=== PATIENT | male | born 1980 | race Caucasian/White ===

== ENCOUNTER 2020-03-27 13:06 | Emergency (ER) | payer OTHER, SELFPAY ==
[2020-03-27 13:18] VITALS: BP 151/101; PULSE 79; RESP 17; TEMP 36.7; O2SAT 99; BMI 26.5
--- NOTE | 2020-03-27 14:03 | US_ITS ---
EXAMINATION: US VENOUS ULTRASOUND WITH DOPPLER LOWER EXTREMITY, LEFT CLINICAL INFORMATION: Left lower extreme swelling and pain, erythema. COMPARISON: None TECHNIQUE: Ultrasound of the deep veins is performed from the hip to the calf with compression sonography and color and pulse Doppler assessment. Spectral analysis with color-flow imaging is performed. FINDINGS: There is normal venous compression and respiratory variation and augmented flow. The visualized common femoral vein, superficial femoral vein, profunda femoral vein, popliteal vein, and the trifurcation region shows no evidence of deep venous thrombosis. There is no significant popliteal fossa cyst. US/US venous duplex LE LT IMPRESSION: No DVT demonstrated in the left lower extremity.
[2020-03-27] MEDS: cephALEXin 500 MG CAPSULE PO (14:11)
--- NOTE | 2020-03-27 14:20 | ED_ITS ---
HPI - Extremity Injury (Lower) General Chief Complaint: Extremity Injury, Lower Stated Complaint: l leg pain Time Seen by Provider: 03/27/20 14:03 Source: patient Mode of arrival: ambulatory History of Present Illness HPI Narrative: 39-year-old male with no significant past medical history of complaining of left lower leg pain, swelling, and erythema x1 week. Reports symptoms worsening, worse with movement/ambulation. Denies known trauma/falls or injury. Denies fever, chills, calf pain, recent travel, history of clots, SOB Related Data Previous Rx's Medication Instructions Recorded cephalexin [Keflex] 500 mg PO Q6H 7 Days #28 cap 03/27/20 Allergies Allergy/AdvReac Type Severity Reaction Status Date / Time naproxen [NAPROXEN] Allergy Unknown SICK Verified 03/27/20 13:23 naproxen Allergy Unknown Stomach Uncoded 03/27/20 13:23 Upset Review of Systems Review of Systems: Constitutional: No Weight loss, No Fever, No Chills Cardiovascular: No Chest Pain, No SOB Respiratory: No Cough, No Sputum, No Wheezing Musculoskeletal: +LLE pain, +L lower leg swelling Skin: No Skin Lesions, +rash Neuro: No Weakness, No Numbness, No Paresthesias Yes all other systems are reviewed and are negative FOR[facility], [facility] Past Medical History Attestation statement: The following information was validated with the patient. Medical History (Updated 03/27/20 @ 16:22 by TRINIDAD Mckeon) No known health problems Social History Social History Smoking Status: Former smoker Use of substances other than those prescribed or required for medical reasons: No Advance Directives: No Advance Directives Information Provided: No Physical Exam Vital Signs: Vital Signs: Vital Signs Temp Pulse Resp BP Pulse Ox 03/27/20 15:39 99.2 F 61 16 143/87 H 97 03/27/20 13:18 98.1 F 79 17 151/101 H 99 Body Mass Index 26.5 Const: General: cooperative and healthy appearing Orientation/consciousness: patient oriented x3 Limitations: no limitations HENMT: Head: Yes normal to inspection Ears: hearing grossly normal bilaterally General nose exam: Normal external nose present Face and sinus: Yes normal facial exam Eyes: General: appearance normal, both eyes and all related structures EOM: EOMs intact bilaterally Neck: Neck: Yes normal visual inspection Resp: Effort & Inspection: normal respiratory effort Cardio: Peripheral pulses: Peripheral pulses 2+ throughout Skin: Other: small superficial abrasion noted to L bullard with distaal +mild swelling and erythema > lateral aspect with ttp. no fluctuance or induration. no streaking. No calf ttp. NV intact. Neuro: General: patient oriented x3 Gait exam (Neuro): Normal gait present Extrem: General: Yes normal to inspection Course Course Course Narrative: -without evidence of DVT Imaging results discussed with patient including antibiotic prescription. Worrisome signs and symptoms and strict return precautions discussed. Patient verbalized understanding feel safe for discharge MDM - Extremity Injury (Lower) MDM Narrative Medical decision making narrative: On exam hypertensive, NAD, nontoxic appearing. Concern for early cellulitis vs possible DVT. Low concern for fracture or abscess/deeper infection Discharge Plan Discharge Clinical Impression: Cellulitis Qualifiers: Site of cellulitis: extremity Site of cellulitis of extremity: lower extremity Laterality: left Qualified Code(s): L03.116 - Cellulitis of left lower limb Patient Disposition: Home, Self-Care Instructions: Cellulitis (ED) Prescriptions: New cephalexin [Keflex] 500 mg capsule 500 mg PO Q6H 7 Days Qty: 28 RF: 0 Referrals: Physician,None [Primary Care Provider] - 2 days (Your primary care doctor)
[2020-03-27 15:39] VITALS: BP 143/87; PULSE 61; RESP 16; TEMP 37.3; O2SAT 97
== END 2020-03-27 16:30 | disposition home or self-care (01) ==
PROVIDERS: Emergency Provider Emergency Medicine
DX: L03.116 Cellulitis of left lower limb (principal); R60.0 Localized edema; Z87.891 Personal history of nicotine dependence
CPT/HCPCS: 93971; 99284

== ENCOUNTER 2020-11-23 06:44 | Emergency (ER) | payer MEDICAID, SELFPAY ==
--- NOTE | ~2020-11-23 | CT_ITS ---
EXAMINATION: CT CERVICAL SPINE WITHOUT CONTRAST CLINICAL INFORMATION: Seizure. Fall. COMPARISON: None TECHNIQUE: Axial images through the cervical spine without contrast. Sagittal and coronal reconstructions on the technologist workstation were performed. This CT examination was performed using dose optimization techniques as appropriate, variously including the following: *Automated exposure control *Adjustment of mA and/or kV according to patient size (this includes techniques or standardized protocols for targeted exams where dose is matched to indication/reason for exam; i.e. extremities or head) *Use of iterative reconstruction technique DLP: 549 mGy-cm FINDINGS: Bone alignment is normal. No fracture or dislocation is seen. Disc spaces are normal. Prevertebral soft tissues are normal. There is shotty cervical lymphadenopathy. The visualized lung apices are clear. CT/CT cervical spine wo con IMPRESSION: Unremarkable examination.
--- NOTE | ~2020-11-23 | CT_ITS ---
EXAMINATION: CT HEAD WITHOUT CONTRAST CLINICAL INFORMATION: Fall. Seizure. COMPARISON: None TECHNIQUE: Contiguous axial imaging was performed from the skull base to vertex without intravenous administration of contrast. This CT examination was performed using dose optimization techniques as appropriate, variously including the following: *Automated exposure control *Adjustment of mA and/or kV according to patient size (this includes techniques or standardized protocols for targeted exams where dose is matched to indication/reason for exam; i.e. extremities or head) *Use of iterative reconstruction technique DLP: 701 mGy-cm FINDINGS: There is no evidence of acute intracranial hemorrhage or territorial infarction. No abnormal mass effect or midline shift is seen. Abbott to white matter differentiation is well preserved. No extra-axial fluid collections are identified. The ventricles are normal in size. There is no abnormal attenuation within the brain parenchyma. The osseous structures and soft tissues are normal. There is inflammatory change seen in the sphenoid sinus. The mastoid air cells and visualized portions of the paranasal sinuses are otherwise clear. CT/CT head/brain wo con IMPRESSION: Unremarkable exam. Mild inflammatory changes in the sphenoid sinus.
--- NOTE | 2020-11-23 06:48 | ECG_ITS ---
Test Reason : SEIZURE Blood Pressure : / mmHG Vent. Rate : 069 BPM Atrial Rate : 069 BPM P-R Int : 144 ms QRS Dur : 084 ms QT Int : 362 ms P-R-T Axes : 019 043 011 degrees QTc Int : 387 ms Normal sinus rhythm Normal ECG No previous ECGs available Referred By: Tory Ruvalcaba Electronically Signed By:Mario Case
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
[2020-11-23 06:55] VITALS: BP 127/104; BP 147/99; PULSE 84; PULSE 92; RESP 15; TEMP 36.8; O2SAT 96; O2SAT 98; BMI 26.5
[2020-11-23 08:11] LABS: MANUAL DIFF FLAG NO
[2020-11-23 08:13] LABS: Basophils Percent Auto 0.4 % (0-2); Eosinophils Percent Auto 0.2 % (0-4); Hematocrit 46.1 % (42-52); Hemoglobin 16.3 g/dl (14.0-18.0); Imm Gran Abs Auto 0.04 X10*3/uL (0.00-0.03); Imm Gran Pct Auto 0.4 % (0.0-0.4); Lymphocytes Absolute Auto 0.5 X10*3/uL (1.2-4.9); Mean Corpuscular HGB Conc 35.4 g/dl (31.0-36.0); Mean Corpuscular Hemoglobin 32.5 pg (27.0-33.0); Mean Corpuscular Volume 91.8 fL (80-98); Mean Platelet Volume 8.9 fL (9.4-12.4); Monocytes Absolute Auto 0.5 X10*3/uL (0.1-1.2); Monocytes Percent Auto 5.3 % (2-11); Neutrophils Absolute Auto 8.6 X10*3/uL (2.0-8.3); Neutrophils Percent Auto 88.7 % (45-73); Platelet Count 227 X10*3/uL (160-400); Red Blood Count 5.02 X10*6/uL (4.60-5.80); White Blood Count 9.7 X10*3/uL (4.8-10.8)
[2020-11-23 08:25] LABS: Glucose Urine UA NEG (NEG); Leukocyte Esterase Urine NEG (NEG); Nitrite Urine NEG (NEG); Specific Gravity - Urine >= 1.030 (1.005-1.025); Urine Blood NEG (NEG); Urine Ketones NEG (NEG); Urine Protein TRACE MG/DL (NEG-TRACE)
[2020-11-23 08:26] LABS: Appearance Urine CLEAR; Color Urine YELLOW
[2020-11-23 08:32] LABS: COVID-19 Test Negative (Negative); IDNOW Serial# 9DD0AD1C
[2020-11-23 08:35] LABS: Glucose, Whole Blood 139 mg/dL (60-115)
[2020-11-23 08:38] LABS: Ethanol < 10 mg/dL
[2020-11-23 08:40] LABS: Anion Gap 11 (12-20); Blood Urea Nitrogen 22 mg/dL (9-16); Calcium 9.6 mg/dL (8.4-10.2); Carbon Dioxide 26 mmol/L (22-29); Chloride 106 mmol/L (96-108); Estimated Glomerular Filt Rate > 60; Glucose Random 105 mg/dL (60-115); Potassium 4.9 mmol/L (3.3-5.1); Sodium 138 mmol/L (135-145)
[2020-11-23 08:41] LABS: Alanine Aminotransferase 19 U/L (0-40); Albumin Level 4.4 g/dL (3.5-5.0); Alkaline Phosphatase 79 U/L (39-117); Aspartate Amino Transferase 20 U/L (5-37); Bilirubin Direct 0.2 mg/dL (0.0-0.5); Bilirubin Total 0.6 mg/dL (0.0-1.0); Lipase 22 U/L (8-78); Magnesium 2.1 mg/dL (1.6-2.6); Total Protein 6.8 g/dL (6.5-8.0)
[2020-11-23 08:52] LABS: Amphetamine Screen Urine Not Detected (Not Detect); Barbiturates, Urine Not Detected (Not Detect); Benzodiazepines Screen Urine Not Detected (Not Detect); Cannabinoid Screen Urine POSITIVE (Not Detect); Cocaine Screen Urine Not Detected (Not Detect); Opiate Screen Urine Not Detected (Not Detect); Phencyclidine Screen Urine Not Detected (Not Detect)
== END 2020-11-23 09:36 | disposition home or self-care (01) ==
PROVIDERS: Emergency Provider Emergency Medicine
DX: G40.89 Other seizures (principal); Z20.822 Contact with and (suspected) exposure to COVID-19
CPT/HCPCS: 36415; 70450; 72125; 80048; 80076; 80307; 81003; 82077; 82947; 83690; 83735; 85025; 87635; 93005; 96360; 99284